=== PATIENT | female | born 1990 | race Caucasian/White ===

== ENCOUNTER → 2025-02-08 17:05 | Outpatient (REF) | payer BC, SELFPAY | LOC: RAD 17:05 | PROVIDERS: ATTENDING PHYSICIAN Family Medicine | DX: M54.50 Low back pain, unspecified (principal) | CPT/HCPCS: 72110 ==

== ENCOUNTER → 2025-02-23 06:40 | Outpatient (REF) | payer BC, SELFPAY | LOC: PAVMRI 06:40 | PROVIDERS: ATTENDING PHYSICIAN Family Medicine | DX: M51.360 Other intervertebral disc degeneration, lumbar region with discogenic back pain only (principal); R93.7 Abnormal findings on diagnostic imaging of other parts of musculoskeletal system | CPT/HCPCS: 72148 ==